=== PATIENT | male | born 1955 | race Caucasian/White ===

== ENCOUNTER 2025-05-29 08:37 | Emergency (ER) | payer OTHER ==
--- OUTSIDE RECORDS SUMMARY | 2025-05-29 08:40 | XMS REPORT | Clinical Summary ---
Author Name Unknown Organization [facility] Address [address] [place] [address] Care Team Providers Care Accreditation Manager Name Role Phone Unavailable Primary Care Provider Unavailabl e Social History Tobacco Use Types Packs/Day Years Used Date Smoking Tobacco: Never Assessed Sex and Gender Information Value Date Recorded Sex Assigned at Not on file Legal Sex Male 9:45 AM [employer] Gender Identity Not on file Sexual Orientation Not on file Plan of Treatment Not on file Insurance MEDICARE PART A AND B [facility] Address: [address] [facility] [place] [id number] MEDICARE PART A AND B [employer] [facility] Address: [address] [place], [place] [address] [id number]
[2025-05-29] MEDS ORDERED: IBUPROFEN 400 MG TAB ONE (08:55)
[2025-05-29] MEDS ORDERED: IBUPROFEN 200 MG TAB PO ONE (08:55)
--- NOTE | 2025-05-29 10:23 | RAD REPORT ---
EXAMINATION: US LEFT LOWER EXTREMITY VENOUS DOPPLER CLINICAL INDICATION: [facility] MA[facility] RLE PAIN Bed Name: 19 Y TECHNIQUE: Complete bilateral duplex sonography of the LEFT lower extremity veins was performed. The examination included compression for vein patency, color Doppler imaging and flow augmentation in response to distal compression of the distal external iliac, common femoral, femoral, popliteal, tibi al, and great and small saphenous veins. COMPARISON: No prior exam. FINDINGS: Duplex sonography testing of the veins of the LEFT lower extremity was performed. Color flow imaging shows all veins to be compressible with [id number] color filling. Pulsatile and phasic flow is present within all lower extremity deep and superficial veins examined. IMPRESSION: No evidence of deep venous thrombosis.
--- NOTE | 2025-05-29 10:34 | ER ---
Nurse's Notes [facility] Name: Nishant Brower Age: 70 yrs Sex: Male : 1955 Arrival Date: 05/29/2025 Time: 08:37 Bed 19 Private MD: Diagnosis: Muscle strain Presentation: 05/29 08:48 Chief complaint: Patient states: R leg pain for 2 weeks. No trauma or falls. Gait ll1 steady. Coronavirus screen: Client denies travel out of the [place] in the last 14 days. At this time, the client does not indicate any symptoms associated with coronavirus-19. Ebola Screen: Patient denies travel to an Ebola-affected area in the 21 days before illness onset. Initial Sepsis Screen: Does the patient meet any 2 criteria? No. Patient's initial sepsis screen is negative. Does the patient have a suspected source of infection? No. Patient's initial sepsis screen is negative. Risk Assessment: Do you want to hurt yourself or someone else? Patient reports no desire to harm self or others. Onset of symptoms was May 15, 2025. 08:48 Method Of Arrival: Ambulatory ll1 08:48 Acuity: MARLINE 4 ll1 Triage Assessment: 08:51 General: Appears in no apparent distress. Behavior is calm, cooperative, appropriate ll1 for age. Pain: Complains of pain in R thigh area Pain currently is 10 out of 10 on a pain scale. Pain began 2 weeks. Musculoskeletal: Circulation, motion, and sensation intact. Capillary refill < 3 seconds, in right toes. Reports pain in right leg. Historical: - PMHx: 08:42 BPH; cirrhosis of liver; depressive disorder; Hypertensive disorder; liver cancer; PTSD;ll1 - PSHx: 08:42 Repair of abdominal hernia; Repair of inguinal hernia; ll1 - Immunization history:: Adult Immunizations up to date. - Infectious Disease History:: Denies. - Social history:: Smoking status: Patient reports the use of cigarette tobacco products, cigars. Screenin:46 [facility] ED Fall Risk Assessment (Adult) History of falling in the last 3 months, ll1 including since admission No falls in past 3 months (0 pts) Confusion or Disorientation No (0 pts) Intoxicated or Sedated No (0 pts) Impaired Gait No (0 pts) Mobility Assist Device Used No (0 pt) Altered Elimination No (0 pt) Score/Fall Risk Level 0 - 2 = Low Risk Maintained a safe environment, Hourly rounding (assess needs \T\ fall precautionary measures) done. Abuse screen: Denies threats or abuse. Nutritional screening: No deficits noted. Tuberculosis screening: No symptoms or risk factors identified. Assessment: 09:15 Reassessment: No changes from previously documented assessment. Patient and/or family ll1 updated on plan of care and expected duration. Pain level reassessed. 10:18 Reassessment: No changes from previously documented assessment. Patient and/or family ll1 updated on plan of care and expected duration. Pain level reassessed. Patient is alert, oriented x 3, equal unlabored respirations, skin warm/dry/pink. 10:39 Reassessment: No changes from previously documented assessment. Patient and/or family ll1 updated on plan of care and expected duration. Pain level reassessed. Vital Signs: 08:48 BP 126 / 74; Pulse 60; Resp 16; Temp 97.8; Pulse Ox 99% ; Weight 68.04 kg; Height 6 ft. ll1 2 in. ; Pain 10/10; 10:39 BP 127 / 69; Pulse 57; Resp 16; Pulse Ox 99% ; ll1 08:48 Body Mass Index 19.26 (68.04 kg, 187.96 cm) ll1 08:48 Pain Scale: Adult ll1 ED Course: 08:39 Patient arrived in ED. rg4 08:40 Tirso Calle MD is Attending Physician. sp3 08:42 Arm band placed on Patient placed in an exam room, on a stretcher. ll1 08:48 Meggan Marvin RN is Primary Nurse. ll1 08:50 Triage completed. ll1 08:50 Provided Education on: ER procedures and process. ll1 09:28 US Extremity Venous Unilateral Ltd In Process Unspecified. EDMS 09:46 Patient has correct armband on for positive identification. Warm blanket given. PO ll1 fluids given. 10:39 No provider procedures requiring assistance completed. Patient did not have IV access ll1 during this emergency room visit. Administered Medications: 09:14 Drug: Ibuprofen PO 600 mg PO once Route: PO; ll1 10:39 Follow up: Response: No adverse reaction ll1 Medication: 09:47 VIS not applicable for this client. ll1 Outcome: 10:33 Discharge ordered by . sp3 10:40 Discharged to home via wheelchair, ll1 10:40 Condition: stable 10:40 Discharge instructions given to patient, Instructed on discharge instructions, follow up and referral plans. medication usage, Demonstrated understanding of instructions, follow-up care, medications, Prescriptions given X 1, 10:40 Patient left the ED. ll1 Signatures: Dispatcher [employer] EDAndria Mcwilliams rg4 Meggan Marvin RN RN ll1 Tirso Calle MD MD sp3
--- NOTE | 2025-05-29 10:34 | EDPHYS ---
Physician Documentation [facility] Name: Nishant Brower Age: 70 yrs Sex: Male : 1955 Arrival Date: 05/29/2025 Time: 08:37 Bed 19 Private MD: ED Physician Tirso Calle HPI: 05/29 09:01 This 70 yrs old Male presents to ER via Ambulatory with complaints of Right groin/leg sp3 Pain. 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 Patient states he was "working on his car" when he "tweaked it" approximately 10 days ago. Pain is continued and so he is here for evaluation. He states that it is improved with Tylenol. He denies any leg swelling, shortness of breath, chest pain, fever, or any other signs or symptoms on ROS at this time. He gets checked every 6 months via scan for any recurrence of liver pathology. Last scan was normal. ROS otherwise negative.. Historical: - PMHx: 08:42 BPH; cirrhosis of liver; depressive disorder; Hypertensive disorder; liver cancer; PTSD;ll1 - PSHx: 08:42 Repair of abdominal hernia; Repair of inguinal hernia; ll1 - Immunization history:: Adult Immunizations up to date. - Infectious Disease History:: Denies. - Social history:: Smoking status: Patient reports the use of cigarette tobacco products, cigars. ROS: 09:04 Constitutional: Negative for fever, chills, and weight loss, Eyes: Negative for injury, sp3 pain, redness, and discharge, ENT: Negative for injury, pain, and discharge, Neck: Negative for injury, pain, and swelling, Cardiovascular: Negative for chest pain, palpitations, and edema, Respiratory: Negative for shortness of breath, cough, wheezing, and pleuritic chest pain, Abdomen/GI: Negative for abdominal pain, nausea, vomiting, diarrhea, and constipation, Back: Negative for injury and pain, Skin: Negative for injury, rash, and discoloration, Neuro: Negative for headache, weakness, numbness, tingling, and seizure, Psych: Negative for depression, anxiety, suicide ideation, homicidal ideation, and hallucinations, Allergy/Immunology: Negative for hives, rash, and allergies, Endocrine: Negative for neck swelling, polydipsia, polyuria, polyphagia, and marked weight changes, 09:04 All other systems are negative, Exam: 09:04 Constitutional: This is a well developed, well nourished patient who is awake, alert, sp3 and in no acute distress. Head/Face: Normocephalic, atraumatic. Eyes: Pupils equal round and reactive to light, extra-ocular motions intact. Lids and lashes normal. Conjunctiva and sclera are non-icteric and not injected. Cornea within normal limits. Periorbital areas with no swelling, redness, or edema. Neck: Trachea midline, no thyromegaly or masses palpated, and no cervical lymphadenopathy. Supple, full range of motion without nuchal rigidity, or vertebral point tenderness. No Meningismus. Chest/axilla: Normal chest wall appearance and motion. Nontender with no deformity. No lesions are appreciated. Cardiovascular: Regular rate and rhythm with a normal S1 and S2. No gallops, murmurs, or rubs. Normal PMI, no JVD. No pulse deficits. Respiratory: Lungs have equal breath sounds bilaterally, clear to auscultation and percussion. No rales, rhonchi or wheezes noted. No increased work of breathing, no retractions or nasal flaring. Abdomen/GI: Soft, non-tender, with normal bowel sounds. No distension or tympany. No guarding or rebound. No evidence of tenderness throughout. Back: No spinal tenderness. No costovertebral tenderness. Full range of motion. Skin: Warm, dry with normal turgor. Normal color with no rashes, no lesions, and no evidence of cellulitis. Neuro: Awake and alert, GCS 15, oriented to person, place, time, and situation. Cranial nerves II-XII grossly intact. Motor strength 5/5 in all extremities. Sensory grossly intact. Cerebellar exam normal. Normal gait. Psych: Awake, alert, with orientation to person, place and time. Behavior, mood, and affect are within normal limits. 09:04 Musculoskeletal/extremity: Patient with point tenderness of the right proximal quadriceps on the central to medial portion. No lymphadenopathy noted. No right lower extremity distal swelling or leg length or circumference discrepancy. Joint exams are normal. Distal pulses are normal.. Vital Signs: 08:48 BP 126 / 74; Pulse 60; Resp 16; Temp 97.8; Pulse Ox 99% ; Weight 68.04 kg; Height 6 ft. ll1 2 in. ; Pain 10/10; 10:39 BP 127 / 69; Pulse 57; Resp 16; Pulse Ox 99% ; ll1 08:48 Body Mass Index 19.26 (68.04 kg, 187.96 cm) ll1 08:48 Pain Scale: Adult ll1 MDM: 08:45 Medical Screening Exam initiated sp3 09:05 Data reviewed: vital signs, nurses notes, radiologic studies. ED course: 70-year-old sp3 male with right proximal leg pain. Differential diagnosis includes muscle strain versus DVT versus other process. Will obtain ultrasound right lower extremity and administer NSAID. Follow-up with PCP if negative. Clinically have ruled out arterial occlusion, joint pathology, sepsis, shock, PE, or any other signs or symptoms on ROS at this time.. 10:32 ED course: Negative DVT study. Patient is improved. Will safely discharge patient home..sp3 05/29 09:01 Order name: US Extremity Venous Unilateral Ltd; Complete Time: 10:32 sp3 Administered Medications: 09:14 Drug: Ibuprofen PO 600 mg PO once Route: PO; ll1 10:39 Follow up: Response: No adverse reaction ll1 Disposition Summary: 05/29/25 10:33 Discharge Ordered Notes: Location: Home sp3 Condition: Stable sp3 Diagnosis - Muscle strain sp3 Followup: sp3 - With: Private Physician - When: Upon discharge from the Emergency Department - Reason: Continuance of care Discharge Instructions: - Discharge Summary Sheet sp3 - Muscle Strain sp3 Forms: - Medication Reconciliation Form sp3 - Antibiotic Education sp3 - Prescription Opioid Use sp3 - Patient Portal Instructions sp3 - Leadership Thank You Letter sp3 Prescriptions: - Diclofenac Sodium 75 mg Oral Tablet Sustained Release - take 1 tablet ORAL route 2 times per day; 30 tablet; Refills: 0, Product sp3 Selection Permitted Signatures: Dispatcher [employer] Meggan Sterling RN RN ll1 Tirso Calle MD MD sp3
[2025-05-29 10:44] VITALS: TEMP 97.8; O2SAT 99
[2025-05-29 10:47] VITALS: BP 127/69
== END 2025-05-29 10:40 | disposition home or self-care (01) ==
LOC: ER 08:37
DX: S86.911A Strain of unspecified muscle(s) and tendon(s) at lower leg level, right leg, initial encounter (principal)
CPT/HCPCS: 93971; 99283